=== PATIENT | female | born 1960 | race Caucasian/White ===

== ENCOUNTER 2018-12-24 16:25 | Inpatient (IN) ==
[~2018-12-24 16:25] MED LIST: ACETAMINOPHEN 325 MG TABLET PO PRN; ONDANSETRON 4 MG/2 ML VIAL IV PRN; ZALEPLON 5 MG CAPSULE PO PRN
[2018-12-24] MEDS ORDERED: hydrALAZINE 20 MG/1 ML VIAL IV PRN (16:28)
[2018-12-24] MEDS ORDERED: TICAGRELOR 90 MG TABLET PO ONE (16:33)
[2018-12-24] MEDS ORDERED: NITROGLYCERIN SL 0.4 MG TABLET SL PRN (16:33)
[2018-12-24] MEDS: ISOSORBIDE MONONITRATE 30 MG TABLET PO SCH (17:22)
[2018-12-24 18:28] LABS: Basophils # 0.1 10*3/uL (0.0-0.2); Basophils % 0.8 % (0.0-0.8); Eosinophils # 0.1 10*3/uL (0.0-0.87); Eosinophils % 2.1 % (0.00-10.9); Hematocrit 40.7 VOL% (35.7-47.0); Immature Granulocytes % 0.3 %; Immature Granulocytes Absolute 0.02 #; Lymphocytes # 2.5 10*3/uL (1.4-4.0); Lymphocytes % 40.3 % (21.3-54.2); Mean Corpuscular HGB Conc 31.9 GM/DL (32-36); Mean Corpuscular Hemoglobin 30 PG (27-34); Mean Corpuscular Volume 94.7 FL (87-102); Mean Platelet Volume 9.5 FL (9.6-12.0); Monocytes # 0.5 10*3/uL (0.11-0.8); Monocytes % 8.7 % (1.7-12.7); Neutrophils # 2.9 10*3/uL (1.4-7.4); Neutrophils % 47.8 % (38.7-73.9); Platelet Count 183 T/CUMM (130-400); Red Cell Distribution Width 13.4 % (9.3-17.3); White Blood Count 6.1 T/CUMM (4-12)
[2018-12-24] MEDS: SODIUM CHLORIDE 0.9% 1,000 ML IV SCH (18:34)
[2018-12-24 18:43] LABS: Calcium 9.2 MG/DL (8.5-10.1); Osmolality,Calculated 278.5 MOS/KG (273-304); Potassium 4.3 MMOL/L (3.5-5.1)
[2018-12-24 19:34] LABS: Apearance,Urine CLEAR (Clear); Bilirubin,Urine Negative (Negative); Blood, Urine Negative (Negative); Glucose,Urine (UA) Negative (Negative); Ketones,Urine Negative (Negative); Nitrite,Urine Negative (Negative); Protein,Urine Negative; RBC,Urine 1 /HPF (0-4); Renal Epithelial Cells,Urine Occasional /HPF (<1); Squamous Epithelial Cell,Urine Occasional /HPF (0-10); Urine Color Yellow (Yellow); Urine Specific Gravity 1.012 (1.001-1.035); Urine Urobilinogen < 2.0 EU/DL (0.2-1.0); WBC,Urine 3 /HPF (0-6)
[2018-12-24] MEDS: ACYCLOVIR 200 MG CAPSULE PO SCH (22:24)
[2018-12-24] MEDS: TICAGRELOR 90 MG TABLET PO SCH (22:25)
[2018-12-24] MEDS: PANTOPRAZOLE 40 MG TABLET PO SCH (22:25)
[2018-12-24] MEDS: ASCORBIC ACID 500 MG TABLET PO SCH (22:26)
[2018-12-24] MEDS: PROPRANOLOL 40 MG TABLET PO SCH (22:26)
[2018-12-24] MEDS: DOCUSATE SODIUM 100 MG CAPSULE PO SCH (22:27)
[2018-12-24] MEDS: ATORVASTATIN 80 MG TABLET PO SCH (22:29)
[2018-12-25] MEDS: SODIUM CHLORIDE 0.9% 1,000 ML IV SCH ×3 (02:30→15:26)
[2018-12-25 04:07] LABS: Basophils % 0.7 % (0.0-0.8); Eosinophils # 0.1 10*3/uL (0.0-0.87); Eosinophils % 2.4 % (0.00-10.9); Immature Granulocytes % 0.4 %; Immature Granulocytes Absolute 0.02 #; Lymphocytes # 2.1 10*3/uL (1.4-4.0); Lymphocytes % 39.5 % (21.3-54.2); Mean Corpuscular HGB Conc 31.4 GM/DL (32-36); Mean Corpuscular Hemoglobin 30 PG (27-34); Mean Corpuscular Volume 95.9 FL (87-102); Mean Platelet Volume 9.7 FL (9.6-12.0); Monocytes # 0.6 10*3/uL (0.11-0.8); Monocytes % 11.6 % (1.7-12.7); Neutrophils # 2.5 10*3/uL (1.4-7.4); Neutrophils % 45.4 % (38.7-73.9); Platelet Count 160 T/CUMM (130-400); Red Blood Count 3.65 MC/CUMM (3.8-5.5); Red Cell Distribution Width 13.2 % (9.3-17.3); White Blood Count 5.4 T/CUMM (4-12)
[2018-12-25 04:24] LABS: Calcium 8.4 MG/DL (8.5-10.1); Osmolality,Calculated 283.1 MOS/KG (273-304); Risk Ratio 4.26
[2018-12-25] MEDS ORDERED: DIAZEPAM 5 MG TABLET PO ONE (06:30)
[2018-12-25] MEDS ORDERED: diphenhydrAMINE CAP 25 MG CAPSULE PO ONE (06:30)
[2018-12-25] MEDS: ASPIRIN EC 81 MG TABLET PO SCH (06:41)
[2018-12-25] MEDS: LISINOPRIL 10 MG TABLET PO SCH (06:41)
[2018-12-25] MEDS: ISOSORBIDE MONONITRATE 30 MG TABLET PO SCH ×2 (06:42→10:16)
[2018-12-25] MEDS: PROPRANOLOL 40 MG TABLET PO SCH ×3 (06:42→21:55)
[2018-12-25] MEDS: TICAGRELOR 90 MG TABLET PO SCH (06:42)
[2018-12-25] MEDS ORDERED: HEPARIN/NACL 0.9% 2 UNITS/ML 1,000 ML IV ONE (06:44)
[2018-12-25] MEDS ORDERED: NITROGLYCERIN DRIP 50 MG/250 ML BOTTLE IV ONE (07:12)
[2018-12-25] MEDS ORDERED: LIDOCAINE 1% 20 ML VIAL ONE (07:12)
[2018-12-25] MEDS ORDERED: VERAPAMIL 5 MG/2 ML VIAL ONE (07:13)
[2018-12-25] MEDS ORDERED: fentaNYL 100 MCG/2 ML VIAL ONE (07:21)
[2018-12-25] MEDS ORDERED: MIDAZOLAM 2 MG/2 ML VIAL ONE (07:21)
[2018-12-25] MEDS ORDERED: HEPARIN 5,000 UNIT/1 ML VIAL ONE (07:28)
[2018-12-25] MEDS ORDERED: ONDANSETRON 4 MG/2 ML VIAL ONE (08:07)
[2018-12-25] MEDS: POTASSIUM CHLORIDE 20 MEQ TABLET PO SCH (13:35)
[2018-12-25] MEDS: CALCIUM (CARBONATE)/VITAMIN D 600 MG-400 UNIT TABLET PO SCH (13:35)
[2018-12-25] MEDS: MAGNESIUM OXIDE 400 MG TABLET PO SCH ×2 (13:36→21:54)
[2018-12-25] MEDS: CHLORTHALIDONE 25 MG TABLET PO SCH (13:36)
[2018-12-25] MEDS: PANTOPRAZOLE 40 MG TABLET PO SCH ×2 (13:36→21:54)
[2018-12-25] MEDS: FERROUS SULFATE 325 MG TABLET PO SCH (13:37)
[2018-12-25] MEDS: ASCORBIC ACID 500 MG TABLET PO SCH ×2 (13:37→21:54)
[2018-12-25] MEDS: DOCUSATE SODIUM 100 MG CAPSULE PO SCH ×2 (13:37→21:55)
[2018-12-25] MEDS: ACYCLOVIR 200 MG CAPSULE PO SCH ×2 (13:44→21:54)
[2018-12-25] MEDS: ATORVASTATIN 80 MG TABLET PO SCH (21:54)
[2018-12-26] MEDS: SODIUM CHLORIDE 0.9% 1,000 ML IV SCH (01:30)
[2018-12-26 04:04] LABS: Basophils % 0.5 % (0.0-0.8); Eosinophils # 0.1 10*3/uL (0.0-0.87); Eosinophils % 1.6 % (0.00-10.9); Hematocrit 34.6 VOL% (35.7-47.0); Hemoglobin 11.1 GM/DL (12.0-16.0); Immature Granulocytes % 0.5 %; Immature Granulocytes Absolute 0.03 #; Lymphocytes # 2.5 10*3/uL (1.4-4.0); Lymphocytes % 38.9 % (21.3-54.2); Mean Corpuscular HGB Conc 32.1 GM/DL (32-36); Mean Corpuscular Hemoglobin 31 PG (27-34); Mean Corpuscular Volume 95.8 FL (87-102); Mean Platelet Volume 9.4 FL (9.6-12.0); Monocytes # 0.7 10*3/uL (0.11-0.8); Monocytes % 10.5 % (1.7-12.7); Neutrophils # 3.1 10*3/uL (1.4-7.4); Platelet Count 160 T/CUMM (130-400); Red Blood Count 3.61 MC/CUMM (3.8-5.5); Red Cell Distribution Width 13.4 % (9.3-17.3); White Blood Count 6.4 T/CUMM (4-12)
[2018-12-26 04:30] LABS: Calcium 8.7 MG/DL (8.5-10.1); Osmolality,Calculated 280.1 MOS/KG (273-304); Potassium 3.5 MMOL/L (3.5-5.1)
[2018-12-26] MEDS ORDERED: POTASSIUM CHLORIDE 20 MEQ TABLET PO ONE (07:10)
[2018-12-26] MEDS: PANTOPRAZOLE 40 MG TABLET PO SCH (08:59)
[2018-12-26] MEDS: ACYCLOVIR 200 MG CAPSULE PO SCH (08:59)
[2018-12-26] MEDS: PROPRANOLOL 40 MG TABLET PO SCH (09:00)
[2018-12-26] MEDS: FERROUS SULFATE 325 MG TABLET PO SCH (09:00)
[2018-12-26] MEDS: CHLORTHALIDONE 25 MG TABLET PO SCH (09:00)
[2018-12-26] MEDS: ASPIRIN EC 81 MG TABLET PO SCH (09:00)
[2018-12-26] MEDS: MAGNESIUM OXIDE 400 MG TABLET PO SCH (09:00)
[2018-12-26] MEDS: LISINOPRIL 10 MG TABLET PO SCH (09:00)
[2018-12-26] MEDS: ASCORBIC ACID 500 MG TABLET PO SCH (09:00)
[2018-12-26] MEDS: DOCUSATE SODIUM 100 MG CAPSULE PO SCH (09:01)
[2018-12-26] MEDS: POTASSIUM CHLORIDE 20 MEQ TABLET PO SCH (09:01)
[2018-12-26] MEDS: ISOSORBIDE MONONITRATE 30 MG TABLET PO SCH (09:01)
[2018-12-26] MEDS: CALCIUM (CARBONATE)/VITAMIN D 600 MG-400 UNIT TABLET PO SCH (09:29)
[2018-12-26 09:56] VITALS: BP 140/82
[2019-01-03 06:13] LABS: Platelet Estimate Decreased; Polychromasia Few
== END 2018-12-26 10:02 | disposition home or self-care (01) | DRG 286 ==
LOC: N.TELES 16:26 → N.CC 12-25 07:58
PROVIDERS: ADMIT Internal Medicine Cardiovascular Disease; ATTEND Internal Medicine Cardiovascular Disease
PROC: CLCCHCL (ICD-10-PCS; 2018-12-25 07:45)